=== PATIENT | male | born 1975 | race Caucasian/White ===

== ENCOUNTER 2021-03-20 13:21 | Emergency (ER) | payer OTHER ==
[2021-03-20 16:04] LABS: BASOPHIL 0.2 % (0-2); EOSINOPHIL 0.9 % (0-5); HCT 55.2 % (42.0-52.0); HGB 19.1 g/dl (13.2-18.0); LYMPHOCYTE 18.5 % (15-48); MCH 29.2 pg (25.0-31.0); MCHC 34.6 g/dL (32.0-36.0); MCV 84.3 fL (78.0-100.0); MONOCYTE 3.9 % (0-12); MPV 10.5 fL (6.0-9.5); NEUTROPHIL 75.8 % (41-80); NRBC 0; PLT 246 K/uL (150-400); RBC 6.55 M/uL (4.70-6.00); RDW 12.7 % (11.5-14.0); WBC 4.6 K/uL (4.0-10.5)
[2021-03-20 17:33] LABS: ALBUMIN 4.1 g/dL (3.4-5.0); BILIRUBIN - TOTAL 0.9 mg/dL (0.2-1.0); BUN/CREAT RATIO (CALC) 20.2 RATIO; CREATININE 0.99 mg/dL (0.67-1.17); POTASSIUM 3.9 mmol/L (3.5-5.1); TOTAL PROTEIN 9.1 g/dL (6.4-8.2)
[2021-03-20 18:31] LABS: BILIRUBIN NEGATIVE (NEGATIVE); BLOOD 3+ Ery/uL (NEGATIVE); CLARITY CLEAR (CLEAR); COLOR YELLOW (YELLOW); GLUCOSE (U) 3+ mg/dL (NORMAL); LEUKOCYTES NEGATIVE Leu/uL (NEGATIVE); NITRITE NEGATIVE (NEGATIVE); PROTEIN 2+ mg/dL (NEGATIVE); SPECIFIC GRAVITY >=1.030 (1.001-1.030); UROBILINOGEN 0.2 mg/dL (0.2-1.0)
[2021-03-20 18:38] LABS: URINARY WBC RARE
[2021-03-20 18:39] LABS: BACTERIA TRACE; MUCOUS TRACE
[2021-03-20] MEDS ORDERED: PROAIR HFA8.5 GM INH (21:38)
[2021-03-20] MEDS ORDERED: METFORMIN HCL500 MG PO (21:38)
== END 2021-03-20 21:25 | disposition home or self-care (01) ==
LOC: FER 13:21
PROVIDERS: Physician Assistant
DX: U07.1 COVID-19 (principal); R31.9 Hematuria, unspecified; R73.9 Hyperglycemia, unspecified; Z23 Encounter for immunization
CPT/HCPCS: 36415; 71045; 71275; 80053; 81001; 84484; 85025; 93005; J7030; M0245; Q0245; Q9967